=== PATIENT | male | born 1965 | race Caucasian/White ===

== ENCOUNTER 2018-02-11 23:28 | Inpatient (IN) | payer OTHER ==
[~2018-02-11] VITALS: Ht 170.2 cm; Wt 117.6 kg
[~2018-02-11 23:28] MED LIST: BENA10TA2 PO; CHOL500045 PO; EZET10TA18 PO; KRIL500C PO; METF500T4 PO; TAMS0.4C2 PO; TURM500C7 PO; VITA1TAB28 PO
[2018-02-12] MEDS ORDERED: SODIUM CHLORIDE FLUSH 10ML SYR IVF ONE (00:30)
[2018-02-12 00:32] LABS: BASOPHILS # (AUTO) 0.03 x10^3/uL (0-0.1); BASOPHILS % (AUTO) 0 % (0-1); EOSINOPHILS # (AUTO) 0.16 x10^3/uL (0-0.4); EOSINOPHILS % (AUTO) 2 % (1-7); LYMPHOCYTES # (AUTO) 3.13 x10^3/uL (1-3.4); LYMPHOCYTES % (AUTO) 29 % (22-44); MD NO; MEAN CORPUSCULAR HEMOGLOBIN 32.1 pg (27.5-34.5); MEAN CORPUSCULAR HGB CONC 34.6 g/dL (33.2-36.2); MEAN CORPUSCULAR VOLUME 92.6 fL (81-97); MEAN PLATELET VOLUME 6.7 fL (7.4-10.4); MONOCYTES % (AUTO) 12 % (2-9); NEUTROPHILS # (AUTO) 6.05 x10^3/uL (1.8-6.8); NEUTROPHILS % (AUTO) 57 % (42-75); PLATELET COUNT 372 x10^3/uL (130-400); RED BLOOD COUNT 5.23 x10^6/uL (4.38-5.82); RED CELL DISTRIBUTION WIDTH 13.1 % (9.4-14.8)
[2018-02-12 00:45] LABS: ALANINE AMINOTRANSFERASE 41 U/L (12-78); ALBUMIN 3.4 g/dL (3.4-5.0); ANION GAP 10 mmol/L (5-15); CALCIUM 8.6 mg/dL (8.5-10.1); CHLORIDE 104 mmol/L (98-107); CREATININE 1.16 mg/dL (0.7-1.3)
[2018-02-12 00:49] LABS: ALKALINE PHOSPHATASE 88 U/L (45-117); BILIRUBIN,TOTAL 0.4 mg/dL (0.2-1.0); TOTAL PROTEIN 6.9 g/dL (6.4-8.2); TROPONIN I < 0.015 ng/mL (0.000-0.045)
[2018-02-12 02:33] VITALS: BP 117/78
[2018-02-12] MEDS ORDERED: SODIUM CHLORIDE 0.9% 1,000 ML IV SCH (04:57)
[2018-02-12] MEDS ORDERED: ONDANSETRON 2MG/ML, 2ML IVPush PRN (05:00)
[2018-02-12] MEDS ORDERED: morphine SULFATE 10 MG/ML, 1ML IVPush PRN (05:00)
[2018-02-12] MEDS ORDERED: GLUCAGON 1 MG IM PRN (05:00)
[2018-02-12] MEDS ORDERED: DEXTROSE 4 GM TAB.CHEW PO PRN (05:00)
[2018-02-12] MEDS ORDERED: DEXTROSE 50%, 50ML SYRINGE IVPush PRN (05:00)
[2018-02-12 05:54] LABS: TROPONIN I < 0.015 ng/mL (0.000-0.045)
[2018-02-12 07:20] VITALS: BP 111/73
[2018-02-12] MEDS ORDERED: REGADENOSON 0.4 MG/5 ML SYRINGE ONE (08:32)
[2018-02-12] MEDS: INSULIN LISPRO 100 UNITS/ML, PEN SQ-INSULIN SCH ×2 (09:00→11:12)
[2018-02-12] MEDS ORDERED: SODIUM CHLORIDE FLUSH 10ML SYR IVF SCH (09:00)
[2018-02-12] MEDS ORDERED: BENAZEPRIL 10 MG TABLET PO SCH (09:00)
[2018-02-12] MEDS ORDERED: TAMSULOSIN 0.4 MG CAP.ER.24H PO SCH (09:00)
[2018-02-12] MEDS ORDERED: EZETIMIBE 10 MG TABLET PO SCH (09:00)
[2018-02-12] MEDS ORDERED: metFORMIN 500 MG TABLET PO SCH (09:00)
[2018-02-12 09:33] LABS: CHOL/HDL RATIO 3.4; LDL/HDL RATIO 1.3 (0.5-3.0)
[2018-02-12 11:53] LABS: TROPONIN I < 0.015 ng/mL (0.000-0.045)
[2018-02-12 12:32] LABS: HEMOGLOBIN A1C 6.9 % (4.2-6.3)
[2018-02-12 13:36] VITALS: BP 117/71
[2018-02-12] MEDS ORDERED: INSULIN LISPRO 100 UNITS/ML, PEN SQ-INSULIN SCH (16:00)
[2018-02-12] MEDS ORDERED: ASPI-621 PO (16:31)
[2018-02-13] MEDS ORDERED: ASPIRIN 81 MG TABLET EC PO SCH (06:00)
[2018-02-13] MEDS ORDERED: OMEGA-3/FISH OIL CAPSULE PO SCH (09:00)
== END 2018-02-12 22:02 | disposition home or self-care (01) | DRG 303 ==
LOC: ED 23:59 → EDIP 02-12 01:22 → 4EST 02-12 01:56
PROVIDERS: ADMIT Hospitalist; ATTEND Hospitalist
DX: I25.10 Atherosclerotic heart disease of native coronary artery without angina pectoris (principal); Z68.41 Body mass index [BMI] 40.0-44.9, adult; E11.9 Type 2 diabetes mellitus without complications; E66.9 Obesity, unspecified; E78.1 Pure hyperglyceridemia; E78.5 Hyperlipidemia, unspecified; I10 Essential (primary) hypertension; N40.0 Benign prostatic hyperplasia without lower urinary tract symptoms; Z87.891 Personal history of nicotine dependence
CPT/HCPCS: 36415; 71046; 78452; 80053; 80061; 82962; 83036; 83735; 84484; 85025; 93005; 93017; 99285; J2785; A9502; C9898; J1815; J7030